=== PATIENT | female | born 1990 | race Caucasian/White ===

== ENCOUNTER 2016-08-26 06:22 | Emergency (ER) | payer OTHER ==
[2016-08-26 06:44] VITALS: TEMP 97.6; BMI 22.1
[2016-08-26] MEDS ORDERED: PSEUDOEPHEDRINE HCL 60 MG TABLET PO ONE (07:42)
[2016-08-26] MEDS ORDERED: IBUPROFEN 600 MG TABLET (FP) PO ONE ×2 (07:42→07:52)
--- NOTE | 2016-08-26 07:43 | PDOC ---
History of Present Illness - General Chief Complaint: Sore Throat Stated Complaint: SORE THROAT Time Seen by Provider: 08/26/16 07:07 History Source: Patient Exam Limitations: No Limitations - History of Present Illness Initial Comments: 08/26/16 07:43 CHIEF COMPLAINT: Throat pain HISTORY OF PRESENT ILLNESS: This is a 26 year old female with a history of asthma who presents with 3 days of nasal congestion, throat pain, and malaise. She woke up this morning with worsening throat pain/painful swallowing, prompting her to present to the ED. She denies fevers/chills, cough, difficulty breathing, or any other symptoms. V/s on arrival are unremarkable. REVIEW OF SYSTEMS: GENERAL/CONSTITUTIONAL: No fever or chills. No weakness. No weight change. HEAD, EYES, EARS, NOSE AND THROAT: See HPI. CARDIOVASCULAR: No chest pain or palpitations. RESPIRATORY: No cough, wheezing, or shortness of breath. GASTROINTESTINAL: No nausea, vomiting, diarrhea or constipation. GENITOURINARY: No dysuria, frequency, or change in urination. MUSCULOSKELETAL: No joint or muscle swelling or pain. No neck or back pain. SKIN: No rash or easy bruising. NEUROLOGIC: No headache, vertigo, loss of consciousness, or loss of sensation. ALLERGIC/IMMUNOLOGIC: No hives or skin allergy. No latex allergy. PHYSICAL EXAM: GENERAL: The patient is awake, alert, and fully oriented, in no acute distress. ENT: Tonsils 3+ and mildly erythematous, no exudates. +Cervical adenopathy. + Nasal congestion/rhinorrhea. LUNGS: Clear to auscultation bilaterally. Normal excursion. No respiratory distress or use of accessory muscles. CV: RRR, S1/S2, no MRG. Cap refill < 2 sec. ABDOMEN: Soft, non-distended, non-tender. EXTREMITIES: Normal range of motion, no edema. NEUROLOGICAL: Normal speech, normal gait. CN II-XII grossly intact. PSYCH: Normal mood, normal affect. SKIN: Warm, dry, normal turgor, no rashes or lesions noted. Past History - Past Medical History Allergies/Adverse Reactions: Allergies Allergy/AdvReac Type Severity Reaction Status Date / Time No Known Allergies Allergy Verified 08/26/16 06:44 Home Medications: Ambulatory Orders NK [No Known Home Medication] 08/26/16 - Psycho/Social/Smoking Cessation Hx Suicidal Ideation: No Smoking History: Never smoked Have you smoked in the past 12 months: No Hx Alcohol Use: No Drug/Substance Use Hx: No *Physical Exam - Vital Signs Last Vital Signs Temp Pulse Resp BP Pulse Ox 97.6 F 63 18 115/70 100 08/26/16 06:42 08/26/16 06:42 08/26/16 06:42 08/26/16 06:42 08/26/16 06:42 ED Treatment Course - ADDITIONAL ORDERS Additional order review: Laboratory Results 08/26/16 07:19 Urine HCG, Qual Negative Medical Decision Making - Medical Decision Making 08/26/16 08:09 A/P: 26 year old female with throat pain/tonsillar swelling/cervical adenopathy , no cough, and nasal congestion. -Pgu -Rapid strep/culture -Motrin/Sudafed for symptomatic relief -Will treat with Bicillin IM for suspected strep *DC/Admit/Observation/Transfer Diagnosis at time of Disposition: Strep pharyngitis - Discharge Dispostion Admit: No - Referrals Referrals: Danielle Muñoz NP [Primary Care Provider] - 3 days - Patient Instructions Printed Discharge Instructions: DI for Strep Throat Additional Instructions: -Rest and stay well-hydrated -Take ibuprofen as needed for pain and Sudafed as needed for congestion -Return here for difficulty breathing, inability to swallow, or any other concerning symptoms - Post Discharge Activity Work/School Note: Back to Work
[2016-08-26] MEDS ORDERED: PSEUDOEPHEDRINE HCL 60 MG TABLET ONE (07:52)
[2016-08-26] MEDS ORDERED: PENICILLIN G BENZATHINE 1,200,000 UNIT/2 ML PFS IM ONE (08:38)
[2016-08-26] MEDS ORDERED: DEXAMETHASONE LIQUID 0.5 MG/5 ML 240 ML BULK BOTTLE PO ONE (08:44)
[2016-08-26] MEDS ORDERED: DEXAMETHASONE SOD PHOSPHATE 10 MG/1 ML VIAL ONE (08:46)
[2016-08-26] MEDS ORDERED: PENICILLIN G BENZATHINE 2,400,000 UNIT/4 ML PFS ONE (08:47)
[2016-08-26 09:14] VITALS: BP 115/78; PULSE 62
== END 2016-08-26 09:14 | disposition home or self-care (01) ==
LOC: JER 06:22
DX: J02.0 Streptococcal pharyngitis (principal); B95.4 Other streptococcus as the cause of diseases classified elsewhere
CPT/HCPCS: 84703; 87070; 87430; 96372; 99282-25

== ENCOUNTER 2017-06-06 21:26 | Emergency (ER) | payer OTHER ==
[2017-06-06 21:34] VITALS: BP 121/79; PULSE 77; TEMP 98.8; BMI 25.4
--- NOTE | 2017-06-06 21:35 | PDOC ---
Rapid Medical Evaluation Chief Complaint: Migraine Headache Time Seen by Provider: 06/06/17 21:32 Medical Evaluation: Allergies Allergy/AdvReac Type Severity Reaction Status Date / Time No Known Allergies Allergy Verified 08/26/16 06:44 06/06/17 21:32 27yo Female patient 17 weeks presents to ED c/o persistent headache that has been ongoing x 3 weeks. Patient states she has been taking Tylenol which helps with the symptoms, but they return. She denies any other complaints at this time.
[2017-06-06 21:52] LABS: URINE APPEARANCE SLCLOUDY; URINE BILIRUBIN NEGATIVE (NEGATIVE); URINE BLOOD NEGATIVE (NEGATIVE); URINE COLOR LTYELLOW; URINE GLUCOSE (UA) NEGATIVE (NEGATIVE); URINE KETONE NEGATIVE (NEGATIVE); URINE NITRITE NEGATIVE (NEGATIVE); URINE PROTEIN NEGATIVE (NEGATIVE); URINE UROBILINOGEN NEGATIVE mg/dL (0.2-1.0)
[2017-06-06 21:55] LABS: BASO % 0.6 % (0-2.0); EOS % 0.6 % (0-4.5); HEMATOCRIT 37.5 % (32.4-45.2); HEMOGLOBIN 12.5 GM/dL (10.7-15.3); LYMPH % 21.2 % (8-40); MCH 31.2 pg (25.7-33.7); MCHC 33.4 g/dl (32.0-36.0); MEAN CELL VOLUME 93.4 fl (80-96); MEAN PLT VOLUME 12.4 fl (7.5-11.1); NEUT % 71.6 % (42.8-82.8); PLATELET COUNT 146 K/MM3 (134-434); RBC 4.02 M/mm3 (3.60-5.2); RDW 13.2 % (11.6-15.6); WHITE BLOOD COUNT 11.8 K/mm3 (4.0-10.0)
[2017-06-06 22:00] LABS: URINE LEUK ESTERASE 1+ (NEGATIVE)
--- NOTE | 2017-06-06 22:06 | PDOC ---
History of Present Illness <RohithMaria Luisa - Last Filed: 06/06/17 23:20> - General History Source: Patient Exam Limitations: No Limitations - History of Present Illness Initial Comments: 06/06/17 22:37 The patient is a 27 year old, , female with no significant past medical history who presents to the ED with complaints of headache for the past three weeks. The patient describes the headache as a constant, frontal, sometimes unilateral, headache that is sharp and stabbing. She reports sleeping and Tylenol help the pain, but it is aggravated by light. She reports taking Tylenol once a day. She has not seen her OB for this yet as her last appointment was rescheduled for next week. She denies any fever, chills, nausea , vomiting, diarrhea, cough, SOB, or urinary symptoms. <Carly Jordan - Last Filed: 06/06/17 23:44> - General Chief Complaint: Migraine Headache Stated Complaint: HEADACHE Time Seen by Provider: 06/06/17 21:32 Past History - Past Medical History Asthma: Yes COPD: No - Suicide/Smoking/Psychosocial Hx Smoking History: Never smoked Have you smoked in the past 12 months: No Hx Alcohol Use: No Drug/Substance Use Hx: No Substance Use Type: None <Maria Luisa Newberry - Last Filed: 06/06/17 23:20> <Carly Jordan - Last Filed: 06/06/17 23:44> - Past Medical History Allergies/Adverse Reactions: Allergies Allergy/AdvReac Type Severity Reaction Status Date / Time No Known Allergies Allergy Verified 08/26/16 06:44 Home Medications: Ambulatory Orders NK [No Known Home Medication] 08/26/16 Review of Systems - Review of Systems Able to Perform ROS?: Yes Comments:: 06/06/17 22:37 GENERAL/CONSTITUTIONAL: No fever or chills. No weakness. HEAD, EYES, EARS, NOSE AND THROAT: No change in vision. No ear pain or discharge. No sore throat. CARDIOVASCULAR: No chest pain or shortness of breath. RESPIRATORY: No cough, wheezing, or hemoptysis. GASTROINTESTINAL: No nausea, vomiting, diarrhea or constipation. GENITOURINARY: No dysuria, frequency, or change in urination. MUSCULOSKELETAL: No joint or muscle swelling or pain. No neck or back pain. SKIN: No rash NEUROLOGIC: Present: headache No vertigo, loss of consciousness, or change in strength/sensation. ENDOCRINE: No increased thirst. No abnormal weight change. HEMATOLOGIC/LYMPHATIC: No anemia, easy bleeding, or history of blood clots. ALLERGIC/IMMUNOLOGIC: No hives or skin allergy. All Other Systems: Reviewed and Negative <Carly Jordan - Last Filed: 06/06/17 23:44> *Physical Exam - Vital Signs Last Vital Signs Temp Pulse Resp BP Pulse Ox 98.8 F 77 16 121/79 100 06/06/17 21:31 06/06/17 21:31 06/06/17 21:31 06/06/17 21:31 06/06/17 21:31 <Maria Luisa Newberry - Last Filed: 06/06/17 23:20> - Vital Signs Last Vital Signs Temp Pulse Resp BP Pulse Ox 98.8 F 77 16 121/79 100 06/06/17 21:31 06/06/17 21:31 06/06/17 21:31 06/06/17 21:31 06/06/17 21:31 - Physical Exam Comments: 06/06/17 22:47 GENERAL: Awake, alert, and fully oriented, in no acute distress HEAD: No signs of trauma EYES: PERRLA, EOMI, sclera anicteric, conjunctiva clear ENT: Auricles normal inspection, hearing grossly normal, nares patent, oropharynx clear without exudates. Moist mucosa NECK: Normal ROM, supple, no lymphadenopathy, JVD, or masses LUNGS: Breath sounds equal, clear to auscultation bilaterally. No wheezes, and no crackles HEART: Regular rate and rhythm, normal S1 and S2, no murmurs, rubs or gallops ABDOMEN: Soft, nontender, normoactive bowel sounds. No guarding, no rebound. No masses EXTREMITIES: Normal range of motion, no edema. No clubbing or cyanosis. No cords, erythema, or tenderness NEUROLOGICAL: Cranial nerves II through XII grossly intact. Normal speech, normal gait SKIN: Warm, Dry, normal turgor, no rashes or lesions noted. <Carly Jordan - Last Filed: 06/06/17 23:44> ED Treatment Course - LABORATORY CBC & Chemistry Diagram: 06/06/17 21:40 06/06/17 21:40 - ADDITIONAL ORDERS Additional order review: Laboratory Results 06/06/17 21:35 Urine Color Ltyellow Urine Appearance Slcloudy Urine pH 6.0 Ur Specific [place] 1.014 Urine Protein Negative Urine Glucose (UA) Negative Urine Ketones Negative Urine Blood Negative Urine Nitrite Negative Urine Bilirubin Negative Urine Urobilinogen Negative Ur Leukocyte Esterase 1+ H 06/06/17 21:40 RBC 4.02 MCV 93.4 MCHC 33.4 RDW 13.2 MPV 12.4 H Neutrophils % 71.6 Lymphocytes % 21.2 Monocytes % 6.0 Eosinophils % 0.6 Basophils % 0.6 <Maria Luisa Newberry - Last Filed: 06/06/17 23:20> - LABORATORY CBC & Chemistry Diagram: 06/06/17 21:40 06/06/17 21:40 - ADDITIONAL ORDERS Additional order review: Laboratory Results 06/06/17 06/06/17 21:40 21:35 Sodium 138 Potassium 3.7 Chloride 106 Carbon Dioxide 25 Anion Gap 7 L BUN 8 Creatinine 0.5 L Creat Clearance w eGFR > 60 Random Glucose 120 H Calcium 8.6 Total Bilirubin 0.4 AST 37 ALT 58 Alkaline Phosphatase 45 Total Protein 6.9 Albumin 3.1 L Urine Color Ltyellow Urine Appearance Slcloudy Urine pH 6.0 Ur Specific [place] 1.014 Urine Protein Negative Urine Glucose (UA) Negative Urine Ketones Negative Urine Blood Negative Urine Nitrite Negative Urine Bilirubin Negative Urine Urobilinogen Negative Ur Leukocyte Esterase 1+ H Urine WBC (Auto) 4 Urine RBC (Auto) 3 Ur Epithelial Cells Moderate Urine Bacteria Rare Hyaline Casts 4 Urine Mucus Rare 06/06/17 21:40 RBC 4.02 MCV 93.4 MCHC 33.4 RDW 13.2 MPV 12.4 H Neutrophils % 71.6 Lymphocytes % 21.2 Monocytes % 6.0 Eosinophils % 0.6 Basophils % 0.6 <Carly Jordan - Last Filed: 06/06/17 23:44> Medical Decision Making - Medical Decision Making 06/06/17 23:20 Pt presents to the ED complaining of persistent daily frontal headache for the last three weeks. No signs or symptoms consistent with pre-ecclampsia, subarachnoid or subdural. Will discharge home with instructions to call her PMD for follow up on Friday. Patient is low suspicion for intracranial mass, but given the persistence of her headache, she should have MRI. <RohithMaria Luisa - Last Filed: 06/06/17 23:20> *DC/Admit/Observation/Transfer - Discharge Dispostion Admit: No <Maria Luisa Newberry - Last Filed: 06/06/17 23:20> - Attestations Scribe Attestion: 06/06/17 22:47 Documentation prepared by Carly Jordan, acting as medical detail representative for Maria Luisa Newberry MD. <Carly Jordan - Last Filed: 06/06/17 23:44> Diagnosis at time of Disposition: Headache Qualifiers: Headache type: unspecified Headache chronicity pattern: acute headache Intractability: not intractable Qualified Code(s): R51 - Headache - Discharge Dispostion Disposition: HOME Condition at time of disposition: Good - Referrals Referrals: Danielle Muñoz NP [Primary Care Provider] - - Patient Instructions Printed Discharge Instructions: DI for Headache Additional Instructions: return to the ED for severe headache, changes in your vision, headache with fever, nausea or vomiting, severe abdominal pain or vaginal bleeding. Make sure that you see your PMD on Friday--you may need an MRI of the brain as an outpatient. - Post Discharge Activity
[2017-06-06 22:10] LABS: ALBUMIN 3.1 g/dl (3.4-5.0); ANION GAP 7 (8-16); BLOOD UREA NITROGEN 8 mg/dL (7-18); CALCIUM 8.6 mg/dL (8.5-10.1); CHLORIDE 106 mmol/L (98-107); CO2 25 mmol/L (21-32); CREATININE 0.5 mg/dL (0.55-1.02); GLUCOSE,RANDOM 120 mg/dL (74-106); POTASSIUM 3.7 mmol/L (3.5-5.1); SGOT/AST 37 U/L (15-37); SGPT/ALT 58 U/L (12-78); SODIUM 138 mmol/L (136-145)
[2017-06-06 22:13] LABS: ALK PHOS 45 U/L (45-117); BILIRUBIN,TOTAL 0.4 mg/dL (0.2-1.0); TOT PROT 6.9 g/dl (6.4-8.2)
[2017-06-06 22:15] LABS: EPI CELLS MODERATE /HPF (FEW); URINE BACTERIA RARE /hpf (NONE SEEN); URINE HYALINE CAST 4 /lpf; URINE MUCUS RARE
[2017-06-06] MEDS ORDERED: ACETAMINOPHEN 500 MG TABLET (FP) PO ONE (22:37)
[2017-06-06] MEDS ORDERED: ACETAMINOPHEN 325 MG TABLET (FP) ONE (22:43)
== END 2017-06-06 23:44 | disposition home or self-care (01) ==
LOC: JER 21:26
DX: R51 Headache (principal)
CPT/HCPCS: 36415; 80053; 81003; 81015; 85025; 99281-25

== ENCOUNTER 2017-09-17 10:59 | Emergency (ER) | payer OTHER ==
[2017-09-17 11:36] VITALS: TEMP 98.5; BMI 26.9
--- NOTE | 2017-09-17 11:59 | PDOC ---
History of Present Illness - General Chief Complaint: Shortness of Breath Stated Complaint: SOB, (32 WKS ) Time Seen by Provider: 09/17/17 11:50 History Source: Patient - History of Present Illness Presenting Symptoms: Chest Pain, Short of Breath Timing/Duration: reports: intermittent Past History - Past Medical History Allergies/Adverse Reactions: Allergies Allergy/AdvReac Type Severity Reaction Status Date / Time No Known Allergies Allergy Verified 09/17/17 11:32 Home Medications: Ambulatory Orders Albuterol Sulfate Inhaler - [Ventolin HFA Inhaler -] 1 - 2 puff PO PRN PRN 07/02 Ferrous Sulfate [Feosol] 325 mg PO DAILY 07/02/17 Vit/Iron Fum/Folic AC [ Tablet] 1 each PO DAILY 07/02/17 Asthma: Yes COPD: No DVT: No Other medical history: GDM - Immunization History Immunization Up to Date: Yes - Suicide/Smoking/Psychosocial Hx Smoking History: Never smoked Have you smoked in the past 12 months: No Information on smoking cessation initiated: No Hx Alcohol Use: No Drug/Substance Use Hx: No Substance Use Type: None Review of Systems - Review of Systems Constitutional: No: Chills, Fever Respiratory: Yes: Shortness of Breath. No: Cough Cardiac (ROS): Yes: Chest Pain. No: Lightheadedness, Palpitations ABD/GI: No: Abdominal cramping : No: Dysuria *Physical Exam - Vital Signs Last Vital Signs Temp Pulse Resp BP Pulse Ox 98.5 F 95 H 16 110/67 98 09/17/17 11:32 09/17/17 18:29 09/17/17 18:29 09/17/17 18:29 09/17/17 18:29 - Physical Exam General Appearance: Yes: Appropriately Dressed. No: Apparent Distress HEENT: positive: Normal Voice Neck: positive: Supple Respiratory/Chest: positive: Lungs Clear, Normal Breath Sounds. negative: Respiratory Distress Cardiovascular: positive: Regular Rate, S1, S2 Integumentary: positive: Dry, Warm Neurologic: positive: Fully Oriented, Alert, Normal Mood/Affect ED Treatment Course - LABORATORY CBC & Chemistry Diagram: 09/17/17 12:38 09/17/17 12:38 - ADDITIONAL ORDERS Additional order review: Laboratory Results 09/17/17 09/17/17 16:00 12:38 D-Dimer 822 H Sodium 139 Potassium 4.1 Chloride 106 Carbon Dioxide 22 Anion Gap 11 BUN 7 Creatinine 0.3 L Creat Clearance w eGFR > 60 Random Glucose 78 Calcium 8.7 Total Bilirubin 0.3 D AST 26 ALT 16 Alkaline Phosphatase 123 H Creatine Kinase 46 Troponin I < 0.02 B-Natriuretic Peptide 9.62 Total Protein 6.7 Albumin 2.9 L 09/17/17 12:38 RBC 4.10 MCV 92.8 MCHC 34.3 RDW 13.6 MPV 11.7 H Neutrophils % 67.0 Lymphocytes % 25.8 D Monocytes % 6.3 Eosinophils % 0.6 Basophils % 0.3 - RADIOLOGY Radiology Studies Ordered: Category Date Time Status DUPLEX VASCUL US-2LEGS [US] Stat Ultrasound 09/17/17 15:55 Completed Medical Decision Making - Medical Decision Making 09/17/17 11:57 27-year-old female, , approximately 32 weeks by dates C/B gestational diabetes and thrombocytopenia as per patient, here with shortness of breath 1 week, worse when supine and has to sit up to sleep. Also complaining of possible chest pain. No hemoptysis, palpitations, dizziness, leg pain or swelling. Denies abd pain, vag bleed or dysuria See exam SOB in 3rd trimester Tachy to 100 w/ unremarkable exam otherwise Possibly dyspnea of vs PE vs cardiac (i.e cardiomyopathy, dissection, ischemia), less likely infxn -ekg -labs -CT -transfer to L&D if w/u neg in ER 09/17/17 14:46 09/17/17 15:25 EKG with sinus tach to 102 with T-wave inversions in 11 and aVF as discussed with Dr. Bloom. Labs including troponin negative. After signing consent for CT , pt now refusing procedure. Benefit/risks was explained to patient by myself, Dr Bloom and radiologist who informed patient that there is some exposure of radiation to the fetus and that iodinated contrast materials does cross the placenta. Pt continues to refuse CT despite being aware that we are r/o PE which can be life threatening if she, in fact, has it. Pt verbalized understanding but still declines test. Appears to have capacity. Aware she can return to ED at any point to get imaging. AMA form signed and witnessed by myself and family. Will now transfer to L&D for monitoring 09/17/17 15:53 After further discussion with patient and ED attending, a decision was made to perform bilateral lower extremity dopplers and get a d-dimer which pt agrees to 09/17/17 18:09 Dimer in the 800s and possibly be due to state. Bilateral lower extremity dopplers negative for DVT. Explained to patient that we still cannot definitively rule out PE without a CT of her chest. Patient verbalized understanding but refuses scan. Rpt vitals improved without intervention. Will now transport upstairs to L&D *DC/Admit/Observation/Transfer Diagnosis at time of Disposition: SOB (shortness of breath) - Discharge Dispostion Disposition: AGAINST MEDICAL ADVICE Condition at time of disposition: Stable - Referrals Referrals: Sindhu Tinoco MD [Primary Care Provider] - - Patient Instructions Additional Instructions: You refused CAT scan of her lungs to rule out blood clot today. Please know you can return to ER at any point to continue evaluation. You were sent up to labor and delivery to have monitoring. Continue follow-up with your [employer]MBRE[employer] FINISHER - Post Discharge Activity
--- NOTE | 2017-09-17 12:13 | PDOC ---
*Physical Exam - Vital Signs Last Vital Signs Temp Pulse Resp BP Pulse Ox 98.5 F 100 H 20 109/60 98 09/17/17 11:32 09/17/17 11:32 09/17/17 11:32 09/17/17 11:32 09/17/17 11:32 ED Treatment Course - LABORATORY CBC & Chemistry Diagram: 09/17/17 12:38 09/17/17 12:38 Medical Decision Making - Medical Decision Making 09/17/17 12:13 MS Hoffman is a 27 yo F who presents to the ER with a complaint of shortness of breath EKG: Sinus tachycardia, rate of 102 bpm, [place] nml, intervals nml T wave inversion III, aVF Pending labs Will do CTA Pt seen by Midlevel Provider under my direct supervision Pt interviewed and examined Ancillary studies reviewed I agree with plan as outlined by Midlevel Provider 09/17/17 12:[address] scan with this patient She signed consent form 09/17/17 15:[address], discussed CT scan with commercial maintenance technician She now states she does not want CT scan Pt decision was reviewed by CHAUNCEY Adame She understands the risks of leaving against medical advice Will send to L&D Pt is leaving Against Medical Advice Note: The patient insists on leaving the emergency dept and is signing out against medical advice. The patient understands the risks and complications that may result from the refusal of medical care and admission which includes and permanent disability. The patient has the mental capacity of understanding the risks of refusing care and is capable of making an informed decision. The patient was instructed to return to the emergency department should she change her mind regarding medical care or should her condition worsen. The patient signed the Against Medical Advice form. *DC/Admit/Observation/Transfer Diagnosis at time of Disposition: SOB (shortness of breath) - Discharge Dispostion Disposition: AGAINST MEDICAL ADVICE Condition at time of disposition: Stable - Referrals Referrals: Sindhu Tinoco MD [Primary Care Provider] - (patient requesting to leave hospital against medical advice without having ultrasound, monitoring or examination by the OB. patient verbalizes understanding of significance of leaving hospital against medical advice. patient signs consent form confirming understanding of leaving hospital against medical advice. patient verbalizes understanding of importance of drinking 10--8oz glasses per day. patient will return to labor & delivery if water breaks, vaginal bleeding, regular contractions or decreased movement patient will maintain appt as scheduled for 09/30/17 9am or reschedule appt for sooner if not feeling well ) - Patient Instructions Additional Instructions: You refused CAT scan of her lungs to rule out blood clot today. Please know you can return to ER at any point to continue evaluation. You were sent up to labor and delivery to have monitoring. Continue follow-up with your [employer]NAPS[employer] SPRAYER - Post Discharge Activity
[2017-09-17 13:29] LABS: BASO % 0.3 % (0-2.0); EOS % 0.6 % (0-4.5); LYMPH % 25.8 % (8-40); MCH 31.8 pg (25.7-33.7); MCHC 34.3 g/dl (32.0-36.0); MEAN CELL VOLUME 92.8 fl (80-96); MEAN PLT VOLUME 11.7 fl (7.5-11.1); MONO % 6.3 % (3.8-10.2); PLATELET COUNT 107 K/MM3 (134-434); RDW 13.6 % (11.6-15.6); WHITE BLOOD COUNT 10.1 K/mm3 (4.0-10.0)
[2017-09-17 13:45] LABS: ALBUMIN 2.9 g/dl (3.4-5.0); ANION GAP 11 (8-16); BILIRUBIN,TOTAL 0.3 mg/dL (0.2-1.0); BLOOD UREA NITROGEN 7 mg/dL (7-18); CALCIUM 8.7 mg/dL (8.5-10.1); CHLORIDE 106 mmol/L (98-107); CO2 22 mmol/L (21-32); CREATININE 0.3 mg/dL (0.55-1.02); GLUCOSE,RANDOM 78 mg/dL (74-106); SGPT/ALT 16 U/L (12-78); SODIUM 139 mmol/L (136-145)
[2017-09-17 13:49] LABS: ALK PHOS 123 U/L (45-117); N-TERMINAL BNP 9.62 pg/ml (5-125); TOT PROT 6.7 g/dl (6.4-8.2)
[2017-09-17 14:20] LABS: POTASSIUM 4.1 mmol/L (3.5-5.1); SGOT/AST 26 U/L (15-37)
[2017-09-17 18:30] VITALS: BP 110/67; PULSE 95
--- NOTE | 2017-09-18 12:59 | EKG ---
Test Reason : Blood Pressure : / mmHG Vent. Rate : 102 BPM Atrial Rate : 102 BPM P-R Int : 128 ms QRS Dur : 080 ms QT Int : 354 ms P-R-T Axes : 052 049 011 degrees QTc Int : 461 ms SINUS TACHYCARDIA NONSPECIFIC T WAVE ABNORMALITY ABNORMAL ECG NO PREVIOUS ECGS AVAILABLE Confirmed by JANETH GUALLPA MD ([id number]) on 09/18/2017 12:59:14 PM Referred By: Confirmed By:JANETH GUALLPA MD
== END 2017-09-17 19:50 | disposition left against medical advice (07) ==
LOC: JER 10:59
DX: O26.893 Other specified pregnancy related conditions, third trimester (principal); R06.02 Shortness of breath; O24.419 Gestational diabetes mellitus in pregnancy, unspecified control; O99.113 Other diseases of the blood and blood-forming organs and certain disorders involving the immune mechanism complicating pregnancy, third trimester; D69.6 Thrombocytopenia, unspecified; Z3A.32 32 weeks gestation of pregnancy
CPT/HCPCS: 36415; 80053; 82550; 83880; 84484; 85025; 85379; 93005; 93010; 93970-TC; 99282-25

== ENCOUNTER 2017-10-22 10:38 | Inpatient (IN) | payer OTHER ==
[2017-10-22] MEDS ORDERED: AMPICILLIN - 2 GM in SODIUM CHLORIDE 100 ML IVPB ONE (11:35)
[2017-10-22] MEDS ORDERED: AMPICILLIN SODIUM 2 GM VIAL ONE (11:35)
[2017-10-22] MEDS ORDERED: ELECTROLYTE-148 SOLN 1,000 ML IV SCH ×2 (12:00→17:00)
[2017-10-22 12:19] VITALS: BMI 30.2
[2017-10-22 12:57] LABS: BASO % 0.2 % (0-2.0); EOS % 0.2 % (0-4.5); HEMATOCRIT 37.8 % (32.4-45.2); HEMOGLOBIN 12.7 GM/dL (10.7-15.3); LYMPH % 20.6 % (8-40); MCH 31.1 pg (25.7-33.7); MCHC 33.7 g/dl (32.0-36.0); MEAN CELL VOLUME 92.1 fl (80-96); MEAN PLT VOLUME 11.8 fl (7.5-11.1); MONO % 5.9 % (3.8-10.2); NEUT % 73.1 % (42.8-82.8); PLATELET COUNT 77 K/MM3 (134-434); RDW 13.9 % (11.6-15.6); WHITE BLOOD COUNT 7.7 K/mm3 (4.0-10.0)
[2017-10-22 13:14] LABS: INR 0.92 (0.82-1.09); PROTHROMBIN TIME (PATIENT) 10.4 SEC (9.7-13.0)
[2017-10-22 13:17] LABS: ACTIVATED PTT 23.3 SECONDS (26.9-34.4)
[2017-10-22 13:23] LABS: ANION GAP 9 (8-16); BLOOD UREA NITROGEN 8 mg/dL (7-18); CALCIUM 8.3 mg/dL (8.5-10.1); CHLORIDE 107 mmol/L (98-107); CO2 24 mmol/L (21-32); CREATININE 0.4 mg/dL (0.55-1.02); GLUCOSE,RANDOM 61 mg/dL (74-106); POTASSIUM 3.8 mmol/L (3.5-5.1); SODIUM 140 mmol/L (136-145)
[2017-10-22 13:54] LABS: ALBUMIN 2.6 g/dl (3.4-5.0); ANION GAP 7 (8-16); BILIRUBIN,TOTAL 0.3 mg/dL (0.2-1.0); BLOOD UREA NITROGEN 7 mg/dL (7-18); CALCIUM 8.3 mg/dL (8.5-10.1); CHLORIDE 110 mmol/L (98-107); CO2 23 mmol/L (21-32); CREATININE 0.4 mg/dL (0.55-1.02); GLUCOSE,RANDOM 60 mg/dL (74-106); POTASSIUM 3.8 mmol/L (3.5-5.1); SGOT/AST 21 U/L (15-37); SGPT/ALT 18 U/L (12-78); SODIUM 140 mmol/L (136-145); TOT PROT 5.8 g/dl (6.4-8.2)
[2017-10-22 13:55] LABS: ALK PHOS 206 U/L (45-117)
[2017-10-22] MEDS ORDERED: AMPICILLIN SODIUM 1 GM VIAL ONE ×3 (15:27→23:30)
[2017-10-22] MEDS: AMPICILLIN - 1 GM in SODIUM CHLORIDE 100 ML IVPB SCH ×3 (15:30→23:30)
[2017-10-22] MEDS ORDERED: DINOPROSTONE 10 MG VAGINAL SUPPOSITORY VG ONE (17:00)
--- NOTE | 2017-10-22 17:00 | HP ---
Past Medical History - Admission Chief Complaint: Rupture of membrane History of Present Illness: 27 yo @ 37 weeks gestation, EDC 11/12/17, with h/o gestational diabetes, admitted for spontaneous rupture of membrane at 10 am. History Source: Patient Limitations to Obtaining History: No Limitations - Past Medical History ...: 3 ...Para: 1 ...Term: 1 ...Induced : 1 ...LMP: 02/05/17 ... Weeks Gestation by Dates: 37 ...EDC by Dates: 11/12/17 ...EDC by Sono: 11/12/17 - Past Surgical History Past Surgical History: Yes: None Hx Myomectomy: No Hx Transabdominal Cerclage: No - Smoking History Smoking history: Never smoked Have you smoked in the past 12 months: No - Alcohol/Substance Use Hx Alcohol Use: No History of Substance Use: reports: None - Social History History of Recent Travel: No Home Medications - Allergies Allergies/Adverse Reactions: Allergies Allergy/AdvReac Type Severity Reaction Status Date / Time No Known Allergies Allergy Verified 10/15/17 14:56 - Home Medications Home Medications: Ambulatory Orders Vit/Iron Fum/Folic AC [ Tablet] 1 tab PO DAILY 07/02/17 Humalog 11 units SQ BID 10/22/17 Lantus 22 units SQ BID 10/22/17 Family Disease History - Family Disease History Family History: Unremarkable Review of Systems - Review of Systems Constitutional: reports: No Symptoms Eyes: reports: No Symptoms HENT: reports: No Symptoms Neck: reports: No Symptoms Cardiovascular: reports: No Symptoms Respiratory: reports: No Symptoms Gastrointestinal: reports: No Symptoms Genitourinary: reports: Other (Leakage of fluid) Breasts: reports: No Symptoms Reported Musculoskeletal: reports: No Symptoms Integumentary: reports: No Symptoms Neurological: reports: No Symptoms Endocrine: reports: No Symptoms Hematology/Lymphatic: reports: No Symptoms Psychiatric: reports: No Symptoms Pain Intensity: 3 Physical Exam - Maternity Vital Signs: Vital Signs Temperature 98.0 F 10/22/17 16:00 Pulse Rate 70 10/22/17 16:00 Respiratory Rate 20 10/22/17 16:00 Blood Pressure 114/62 10/22/17 16:00 O2 Sat by Pulse Oximetry (%) Constitutional: Yes: Well Nourished Eyes: Yes: Conjunctiva Clear HENT: Yes: Atraumatic Neck: Yes: Supple Cardiovascular: Yes: Regular Rate and Rhythm Lungs: Clear to auscultation - Abdominal Exam/OB Number of Fetuses: Single Presentation: Vertex Contractions: Yes Regularity: Irregular Intensity: Mild - Vaginal Exam/OB Vaginal Bleediing: No Dilatation (cm): 1 Effacement (%): 60 Amniotic Membrane Status: Leaking Presentation: Vertex/Position Station: -3 - Physical Exam Musculoskeletal: Yes: WNL Extremities: Yes: WNL Integumentary: Yes: WNL ...Motor Strength: WNL Psychiatric: Yes: Alert, Oriented - Labs Lab Results: CBC, BMP 10/22/17 12:23 10/22/17 13:23 Problem List - Problems (1) Spontaneous rupture of membranes Code(s): [id number] - Assessment/Plan IUP @ 37 weeks Gestational diabetes Spontaneous rupture of membrane Admit to L&D Group B Strep prophylaxis Cervidil induction Re-evaluate in 12 hours or before if indicated.
[2017-10-22] MEDS ORDERED: PROMETHAZINE HCL 25 MG/1 ML VIAL IVPUSH ONE (23:00)
[2017-10-22] MEDS ORDERED: BUTORPHANOL TARTRATE 1 MG/ML VIAL IVPUSH ONE (23:00)
[2017-10-22] MEDS ORDERED: BUTORPHANOL TARTRATE 1 MG/ML VIAL ONE ×2 (23:00)
[2017-10-22] MEDS ORDERED: INSULIN (LEVEMIR) 100 UNITS/ML UNITS SQ ONE (23:00)
[2017-10-22] MEDS ORDERED: PROMETHAZINE HCL 25 MG/1 ML VIAL ONE (23:00)
--- NOTE | 2017-10-22 23:49 | PN ---
Progress Note (short form) - Note Progress Note: Patient seen and evaluated, doing well. She's status post Stadol. FHR : Reactive [place] : + regular contractions VE : /-2 Cervidil removed A/P : SROM Status post Cervidil Pitocin augmentation in 30 mins Problem List - Problems (1) Spontaneous rupture of membranes Code(s): ATS8488 -
[2017-10-23] MEDS ORDERED: OXYTOCIN 30 UNITS in 0.9% NS 30 UNIT/500 ML INFUS.BAG IVPB ONE ×2 (00:06→00:08)
[2017-10-23] MEDS ORDERED: OXYTOCIN 20 UNITS in 0.9% NS 20 UNIT/1,000 ML INFUS.BAG IV ONE (00:42)
[2017-10-23] MEDS ORDERED: LIDOCAINE HCL 1% PRESERVATIVE FREE - 30ML VIAL ONE (00:42)
[2017-10-23] MEDS ORDERED: OXYTOCIN 30 UNITS in 0.9% NS 30 UNIT/500 ML INFUS.BAG IVPB SCH (00:45)
[2017-10-23] MEDS ORDERED: BISACODYL 10 MG SUPP.RECT RC PRN (03:02)
[2017-10-23] MEDS ORDERED: METHYLERGONOVINE MALEATE 0.2 MG/1 ML AMP IM PRN (03:02)
[2017-10-23] MEDS ORDERED: BENZOCAINE 20% 57 GM BOTTLE TP PRN (03:02)
[2017-10-23] MEDS ORDERED: WITCH HAZEL 50% (TUCKS) 40 PAD/JAR PAD TP PRN (03:02)
[2017-10-23] MEDS ORDERED: BENZOCAINE 28 GM HEMORRHOIDAL OINTMENT TP PRN (03:02)
--- NOTE | 2017-10-23 03:05 | PN ---
Delivery - Delivery Vaginal Delivery: Spontaneous Type of Anesthesia: Local Episiotomy/Laceration: None EBL (cc): 300 Delivery, Single - Feeding Plan Initial Plan: Elected not to breastfeed exclusively throughout hospitalization Remarks - Remarks Remarks: Normal spontaneous vaginal delivery of a live over intact perineum. Nose / Oropharynx suctioned @ perineum. Placenta expelled spontaneously intact.
[2017-10-23] MEDS ORDERED: OXYTOCIN 20 UNITS in 0.9% NS 20 UNIT/1,000 ML INFUS.BAG IV SCH (03:15)
[2017-10-23] MEDS: AMPICILLIN - 1 GM in SODIUM CHLORIDE 100 ML IVPB SCH (05:37)
[2017-10-23] MEDS: ACETAMINOPHEN 325 MG TABLET (FP) PO PRN ×3 (05:58→20:34)
[2017-10-23] MEDS: IBUPROFEN 600 MG TABLET (FP) PO PRN ×3 (06:00→20:35)
[2017-10-23] MEDS: FERROUS SO4 325 MG TABLET (FP) PO SCH ×3 (08:35→18:03)
[2017-10-23] MEDS: PRENATAL VITAMINS W/ FOLIC ACID TABLET (FP) PO SCH (10:11)
--- NOTE | 2017-10-24 07:03 | PN ---
Progress Note (short form) - Note Progress Note: ppd 1 s/p , no c/o , voids ok CBC, BMP 10/22/17 12:23 10/22/17 13:23 Last Vital Signs Temp Pulse Resp BP Pulse Ox 97.6 F 83 18 112/64 10/24/17 02:00 10/24/17 02:00 10/24/17 02:00 10/24/17 02:00 abdomen soft, no cva , uterus firm , non tender lochia mild no calf tenderness plan ambulate cbc
[2017-10-24 07:53] LABS: BASO % 0.4 % (0-2.0); EOS % 0.6 % (0-4.5); HEMATOCRIT 37.3 % (32.4-45.2); HEMOGLOBIN 12.5 GM/dL (10.7-15.3); MCH 31.4 pg (25.7-33.7); MCHC 33.3 g/dl (32.0-36.0); MEAN CELL VOLUME 94.1 fl (80-96); MEAN PLT VOLUME 12.5 fl (7.5-11.1); PLATELET COUNT 81 K/MM3 (134-434); RBC 3.97 M/mm3 (3.60-5.2); RDW 14.3 % (11.6-15.6); WHITE BLOOD COUNT 13.4 K/mm3 (4.0-10.0)
[2017-10-24] MEDS: FERROUS SO4 325 MG TABLET (FP) PO SCH ×3 (08:02→17:10)
[2017-10-24] MEDS: IBUPROFEN 600 MG TABLET (FP) PO PRN ×2 (08:39→20:34)
[2017-10-24] MEDS: ACETAMINOPHEN 325 MG TABLET (FP) PO PRN ×2 (08:40→20:33)
[2017-10-24] MEDS: PRENATAL VITAMINS W/ FOLIC ACID TABLET (FP) PO SCH (09:33)
[2017-10-24] MEDS ORDERED: DIPHTH,PERTUSS(ACELL),TET 0.5 ML DISP.SYRIN IM ONE (12:00)
[2017-10-24] MEDS ORDERED: SENNOSIDES/DOCUSATE COMBO (SENNA PLUS) TABLET (UD) PO PRN (22:00)
[2017-10-25] MEDS: FERROUS SO4 325 MG TABLET (FP) PO SCH ×3 (08:00→17:06)
--- NOTE | 2017-10-25 08:09 | DS ---
Physical Exam-SHEET FED PRINTER Vital Signs: Vital Signs Temperature 98.7 F 10/24/17 22:00 Pulse Rate 71 10/24/17 22:00 Respiratory Rate 18 10/24/17 22:00 Blood Pressure 123/73 10/24/17 22:00 O2 Sat by Pulse Oximetry (%) Constitutional: Yes: Well Nourished Eyes: Yes: Conjunctiva Clear HENT: Yes: Atraumatic Neck: Yes: Supple Cardiovascular: Yes: Regular Rate and Rhythm Respiratory: Yes: Regular Gastrointestinal: Yes: Normal Bowel Sounds External Genitalia: Yes: Normal Vaginal Exam: Yes: Normal Cervix: Yes: Normal Uterus: Yes: Firm ....Post : Yes: Uterus firm, Moderate lochia serosa Breast(s): Yes: WNL Neurological: Yes: Alert, Oriented ...Motor Strength: WNL Psychiatric: Yes: Alert, Oriented Labs: CBC, BMP 10/24/17 07:00 10/22/17 13:23 Delivery - Delivery Vaginal Delivery: Spontaneous Type of Anesthesia: None Episiotomy/Laceration: None EBL (cc): 300 Delivery, Single - Stages of Labor Date 1st Stage Initiatied: 10/22/17 Time 1st Stage Initiated: 11:30 Date 2nd Stage Initiated: 10/23/17 Time 2nd Stage Initiated: 02:48 Date of Delivery: 10/23/17 Time of Delivery: 02:53 Time Placenta Delivered: 02:58 - Condition of Infant Charge Master Analyst/User Experience Lead Present: No Infant Gender: Male Weight: 7 lb 8 oz Position: Left, OA Total Hours ROM (Hrs/Mins): 16Hrs/53Mins - 1 Minute Total Score: 8 5 Minutes Total Score: 9 - [place] Feeding Plan Initial Plan: Elected not to breastfeed exclusively throughout hospitalization Discharge Summary Reason For Visit: LABOR Current Active Problems Spontaneous rupture of membranes (Acute) Status post normal vaginal delivery (Acute) Procedures: Principal: Normal spontaneous vaginal delivery Hospital Course: Routine care Condition: Good - Instructions Diet, Activity, Other Instructions: Regular diet No douching, no sexual intercourse x 6 weeks F/u in clinic in 6 weeks Disposition: HOME - Home Medications Comprehensive Discharge Medication List: Ambulatory Orders Vit/Iron Fum/Folic AC [ Tablet] 1 tab PO DAILY 07/02/17 Humalog 11 units SQ BID 10/22/17 Lantus 22 units SQ BID 10/22/17
[2017-10-25] MEDS: PRENATAL VITAMINS W/ FOLIC ACID TABLET (FP) PO SCH (09:16)
[2017-10-25] MEDS: IBUPROFEN 600 MG TABLET (FP) PO PRN (09:16)
[2017-10-25] MEDS: ACETAMINOPHEN 325 MG TABLET (FP) PO PRN (09:16)
[2017-10-25 13:17] VITALS: BP 128/66; PULSE 94; TEMP 98.1
== END 2017-10-25 18:50 | disposition home or self-care (01) | DRG 560 ==
LOC: JLDR 10:38 → J3W 10-23 05:19
PROVIDERS: ADMIT Obstetrics & Gynecology; ATTEND Obstetrics & Gynecology
PROC: 10E0XZZ Delivery of Products of Conception, External Approach (ICD-10-PCS; principal; 2017-10-23)
DX: O24.429 Gestational diabetes mellitus in childbirth, unspecified control (principal); Z3A.37 37 weeks gestation of pregnancy; Z37.0 Single live birth
CPT/HCPCS: 36415; 59409; 80048; 80053; 82962; 85025; 85610; 85730; 86593; 86850; 86900; 86901; 90715

== ENCOUNTER 2018-03-14 11:45 | Emergency (ER) | payer OTHER ==
[2018-03-14 12:00] VITALS: BP 118/76; PULSE 52; TEMP 98.1; BMI 25.6
[2018-03-14] MEDS ORDERED: IBUPROFEN 400 MG TABLET (FP) PO ONE ×2 (12:18→12:21)
--- NOTE | 2018-03-14 12:23 | PDOC ---
History of Present Illness - General Chief Complaint: Ear Problem Stated Complaint: EAR PROBLEM Time Seen by Provider: 03/14/18 11:59 History Source: Patient - History of Present Illness Timing/Duration: reports: yesterday Associated Symptoms: reports: earache Past History - Past Medical History Allergies/Adverse Reactions: Allergies Allergy/AdvReac Type Severity Reaction Status Date / Time No Known Allergies Allergy Verified 03/14/18 11:57 Home Medications: Ambulatory Orders Amoxicillin - [Amoxicillin 875mg Tablet -] 875 mg PO BID #14 tab 03/14/18 Ciprofloxacin HCl/Dexameth [Ciprodex Otic Suspension] 4 drop AD BID #1 bottle Asthma: Yes Cancer: No Cardiac Disorders: No COPD: No DVT: No Diabetes: Yes HTN: No Seizures: No Thyroid Disease: No - Immunization History Immunization Up to Date: Yes - Suicide/Smoking/Psychosocial Hx Smoking History: Never smoked Have you smoked in the past 12 months: No Hx Alcohol Use: No Drug/Substance Use Hx: No Substance Use Type: None Hx Substance Use Treatment: No Review of Systems - Review of Systems Constitutional: No: Fever HEENTM: Yes: Ear Pain. No: Ear Discharge, Throat Pain Respiratory: No: Cough *Physical Exam - Vital Signs Last Vital Signs Temp Pulse Resp BP Pulse Ox 98.1 F 52 L 14 118/76 99 03/14/18 11:58 03/14/18 11:58 03/14/18 11:58 03/14/18 11:58 03/14/18 11:58 - Physical Exam General Appearance: Yes: Appropriately Dressed, Mild Distress HEENT: positive: Normal Voice, Other (erythema w/ minimal swelling and ttp to R ear canal, TM visualized w/ overlying exudates, +R posterior auricular lymphadenopathy, L ear wnl) Neck: positive: Supple Respiratory/Chest: negative: Respiratory Distress Integumentary: positive: Dry, Warm Neurologic: positive: Fully Oriented, Alert, Normal Mood/Affect Medical Decision Making - Medical Decision Making 03/14/18 12:22 28 yo F, no sig hx, here w/ severe R ear pain since yesterday. No otorrhea, HL, sore throat, cough, f/c. No recent sick contacts or trauma See exam OME, possibly externa as well No e/o mastoiditis -dose of motrin in ED -dc w/ amox and ciprodex *DC/Admit/Observation/Transfer Diagnosis at time of Disposition: Otitis media Qualifiers: Otitis media type: unspecified Chronicity: acute Qualified Code(s): H66.90 - Otitis media, unspecified, unspecified ear - Discharge Dispostion Disposition: HOME Condition at time of disposition: Good - Prescriptions Prescriptions: Amoxicillin - [Amoxicillin 875mg Tablet -] 875 mg PO BID #14 tab Ciprofloxacin HCl/Dexameth [Ciprodex Otic Suspension] 4 drop AD BID #1 bottle - Referrals Referrals: Sindhu Tinoco MD [Primary Care Provider] - - Patient Instructions Printed Discharge Instructions: Middle Ear Infection, Otitis Externa Additional Instructions: You were treated for both a middle ear and possible external ear infection. Take medication and use drops as directed, you can take 800 mg of Motrin every 6 hours as needed for pain. Return as needed - Post Discharge Activity
== END 2018-03-14 12:23 | disposition home or self-care (01) ==
LOC: JERFT 11:45
DX: H66.91 Otitis media, unspecified, right ear (principal); Z87.09 Personal history of other diseases of the respiratory system
CPT/HCPCS: 99281-25

== ENCOUNTER 2018-09-07 10:28 | Day surgery (SDC) | payer OTHER ==
[2018-09-04 08:59] VITALS: BMI 25.4
--- NOTE | 2018-09-07 10:31 | HP ---
Admitting History and Physical - Admission Chief Complaint: Desires permanent sterilization History of Present Illness: 28yo here for permanent sterilization x 2; no desire for future childbearing. 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: Alzheimer's, CVA, Dementia, Migraine, Multiple Sclerosis, Peripheral Neuropathy, Parkinson's, Seizure, Syncope, TIA, Vertigo, Other Cardiovascular: No: AFIB, Aneurysm, Aortic Insufficiency, Aortic Stenosis, CAD, CHF, Deep Vein Thrombosis, HTN, Hyperlipdemia, MT, Mitral Insufficiency, Mitral Stenosis, Murmur, Pulmonary Hypertension, Other Pulmonary: No: Asthma, Bronchitis, Cancer, COPD, O2 Dependent, Pneumonia, Previously Intubated, Pulmonary Embolus, Pulmonary Fibrosis, Sleep Apnea, Other Gastrointestinal: No: Ascites, Cancer, Constipation, Crohn's Disease, Diverticulitis, Diverticulosis, Esophageal Varices, Gastritis, GERD, GI Bleed, Hemorrhoids, Hiatal Hernia, Inflamatory Bowel Disease, Irritable Bowel Disease, Pancreatitis, Peptic Ulcer Disease, Ulcerative Colitis, Other Hepatobiliary: No: Cirrhosis, Cholelithiasis, Cholecystitis, Choledocholithiasis , Hepatitis A, Hepatitis B, Hepatitis C, Other Renal/: No: Renal Failure, Renal Inusuff, BPH, Cancer, Hematuria, Hemodialysis , Neurogenic Bladder, Renal Calculi, UTI, Other ...LMP: 08/27/18 ...: No ...: 2 ...Para: 2 - Past Surgical History Past Surgical History: Yes: None - Smoking History Smoking history: Never smoked Have you smoked in the past 12 months: No - Alcohol/Substance Use Hx Alcohol Use: Yes (socially) History of Substance Use: reports: None - Social History Usual Living Arrangement: Yes: With Spouse History of Recent Travel: No Home Medications - Allergies Allergies/Adverse Reactions: Allergies Allergy/AdvReac Type Severity Reaction Status Date / Time No Known Allergies Allergy Verified 09/04/18 09:01 - Home Medications Home Medications: Ambulatory Orders NK [No Known Home Medication] 09/04/18 Physical Examination Constitutional: Yes: Well Nourished, No Distress, Calm Eyes: Yes: WNL, Conjunctiva Clear, EOM Intact HENT: Yes: WNL, Atraumatic, Normocephalic Neck: Yes: WNL, Supple, Trachea Midline Cardiovascular: Yes: WNL, Regular Rate and Rhythm Respiratory: Yes: WNL, Regular, CTA Bilaterally Gastrointestinal: Yes: WNL, Normal Bowel Sounds Musculoskeletal: Yes: WNL Extremities: Yes: WNL Edema: No Integumentary: Yes: WNL Neurological: Yes: WNL, Alert, Oriented ...Motor Strength: WNL Psychiatric: Yes: WNL Problem List - Problems (1) Sterilization Code(s): Z30.2 - ENCOUNTER FOR STERILIZATION Assessment/Plan 28yo here for permanent sterilization by LSC bilateral salpingectomy NPO, IVFs No antibiotics indicated SCDs Alternatives (including but not limited to LARCs) and risks to procedure discussed with patient (including GETA, bleeding, infection, injury to bladder/ bowel/ureters/vessels/nerves). All questions answered. Consent signed. Warner Whittaker MD
[2018-09-07] MEDS ORDERED: fentaNYL CITRATE 250 MCG/5 ML VIAL ONE (12:35)
[2018-09-07] MEDS ORDERED: ROCURONIUM BROMIDE 50 MG/5 ML VIAL ONE (12:36)
[2018-09-07] MEDS ORDERED: SUCCINYLCHOLINE CHLORIDE 200 MG/10 ML VIAL ONE (12:36)
[2018-09-07] MEDS ORDERED: PROPOFOL 20 ML ONE ×2 (12:36)
[2018-09-07] MEDS ORDERED: MIDAZOLAM HCL 2 MG/2 ML SINGLE DOSE VIAL ONE (12:36)
[2018-09-07] MEDS ORDERED: LIDOCAINE HCL 1%, 10 MG/ML (20ML VIAL) INF ONE ×2 (13:19)
[2018-09-07] MEDS ORDERED: ONDANSETRON 4 MG/2 ML VIAL IVPUSH PRN (13:21)
[2018-09-07] MEDS ORDERED: LACTATED RINGERS SOLUTION 1,000 ML IV SCH (13:30)
--- NOTE | 2018-09-07 13:52 | OP ---
Operative Note - Note: Operative Date: 09/07/18 Pre-Operative Diagnosis: Desires permanent sterilization, Removal of IUD Operation: Laparoscopic Bilateral Salpingectomy, Removal of Paragard IUD Findings: Normal uterus, normal ovaries bilaterally, normal tubes bilaterally with small paratubal cyst. Surgeon: Susie Whittaker Public Address Systems Mechanic: Gale Landin Anesthesia: Spinal Estimated Blood Loss (mls): 25 Drains, Volume Out (mls): 100 (clear urine) Operative Report Dictated: Yes
--- NOTE | 2018-09-07 14:45 | SURG ---
Surgery Director Athletic Note Director Athletic: Gale Landin PA-C Date of Service: 09/07/18 Diagnosis: Desires permanent sterilization, Removal of IUD Procedure: Laparoscopic Bilateral Salpingectomy, Removal of Paragard IUD I was present for the entirety of the operative procedure. For further detail, please refer to operative report. Visit type - Case Type Case Type: Scheduled - Emergency Emergency Visit: No - New patient This patient is new to me today: Yes Date on this admission: 09/07/18
[2018-09-07] MEDS ORDERED: ACETAMINOPHEN 325 MG TABLET (FP) PO PRN (15:32)
[2018-09-07] MEDS ORDERED: ACETAMINOPHEN 325 MG TABLET (FP) PO ONE (15:35)
[2018-09-07 16:20] VITALS: BP 109/60; PULSE 82; TEMP 97.5
--- NOTE | 2018-09-07 22:43 | OP ---
DATE OF OPERATION: 09/07/2018 PREOPERATIVE DIAGNOSIS: Desires permanent sterilization. POSTOPERATIVE DIAGNOSIS: Desires permanent sterilization. PROCEDURE: Laparoscopic bilateral salpingectomy, removal of intrauterine device. SURGEON: Fernandez Gtz MD CONE SEWER: CHAUNCEY Kwon ANESTHESIA: General. INTRAVENOUS FLUIDS: Per anesthesia record. ESTIMATED BLOOD LOSS: 25. URINE OUTPUT: Clear urine 100 mL at the end of the procedure. FINDINGS: Normal uterus, normal ovaries bilaterally, normal tubes bilaterally, bilateral paratubal cysts. COMPLICATIONS: None. CONDITION: Stable to Recovery. NATURE OF THE PROCEDURE: After the appropriate consents were signed, patient was taken to the operating room. Anesthesia was administered. She was placed in dorsal lithotomy position. Sterile field was prepped and draped in normal sterile fashion. A Bowman catheter was inserted. A speculum was inserted into the vagina with good visualization of the cervix with the IUD strings present. Using a ring forcep, the IUD strings were grasped, and with gentle traction, the IUD removed without difficulty in its entirety. Speculum then removed. Attention then was paid to the abdomen and the laparoscopic portion of the procedure. Next, 1% lidocaine was injected into the umbilicus. Using an 11-blade scalpel, a small incision was made intraumbilically to accommodate a 5-mm scope which was introduced under direct visualization. The abdomen was insufflated with gas. Patient was placed in Trendelenburg position. A left lower quadrant and right lower quadrant 5-mm port were placed under direct visualization without difficulty. The patient's left fallopian tube was grasped, carried through to the fimbriated edges, and noted to be normal aside from a small paratubal cyst. Using the LigaSure device, the fallopian tube was transected along the mesosalpinx to its insertion point at the uterus. The fallopian tube was then removed through the right lower quadrant port. Attention was then paid to the bite sites which were noted to be hemostatic. The patient's right fallopian tube was then grasped, carried through to its fimbriated edges, was also noted to be normal aside from a paratubal cyst which on the right side was noted to be larger than the left side paratubal cyst. Using the LigaSure device, the fallopian tube was transected along the mesosalpinx and then again at its insertion site to the uterus. The fallopian tube was then removed via the patient's left lower quadrant port. The bite sites were noted to be hemostatic. The right lower quadrant and left lower quadrant ports were then removed under visualization. The umbilical port was removed last. The abdomen was deflated of gas. The incision sites were closed with 4-0 Biosyn. Bowman catheter was removed. All sponge, lap, and needle counts were correct x3. The patient did not receive any antibiotics. FERNANDEZ GTZ MD [id number]
--- NOTE | 2018-09-10 15:34 | PATH ---
Surgical Pathology Report Patient Name: RYLIE AHMADI [facility]. Rec. #: [id number] /Age/Gender: 1990 (Age: 28) / F Account: [id number] Location: [facility] SURGICAL Taken: 09/07/2018 Received: 09/08/2018 Reported: 09/10/2018 Physicians: Susie Whittaker Specimen(s) Received A: IUD B: LEFT FALLOPIAN TUBE AND CYST C: RIGHT FALLOPIAN TUBE Clinical History Desired permanent sterilization Final Diagnosis A. IUD, REMOVAL: IUD, DESCRIBED (GROSS EXAMINATION ONLY). B. FALLOPIAN TUBE AND CYST, LEFT, TUBAL LIGATION AND CYSTECTOMY: COMPLETE CROSS SECTION OF FALLOPIAN TUBE. PARATUBAL CYST. C. FALLOPIAN TUBE, RIGHT, TUBAL LIGATION: COMPLETE CROSS SECTION OF FALLOPIAN TUBE. Electronically Signed Gale Lane M.D. Gross Description A. Received fresh labeled "IUD," is a 3.5 cm in length T-shaped device with attached string, consistent with an IUD. No soft tissue is present. No sections are submitted, gross only. B. Received in formalin labeled "left fallopian tube and cyst," are 2 portions of fallopian tube averaging 2.0 cm in length. One of the portions displays attached fimbria. The outer surfaces are maloney-addison and smooth. Sectioning reveals an unremarkable fallopian tube lumen. Separately received within the same container is a 1.5 x 1.0 x 0.2 cm aggregate of maloney-addison soft tissue fragments, possibly consistent with a disrupted cyst. Financial Assistance Advisor sections are submitted in 3 cassettes as follows: 1-fimbria; 2-cross sections of fallopian tube; 3-cyst. C. Received in formalin labeled "right fallopian tube," are 3 portions of fallopian tube ranging from 1.0-3.0 cm in length. The shortest portion displays attached fimbria. The outer surfaces are maloney-addison with focal adhesions. Sectioning reveals an unremarkable fallopian tube lumen. Financial Assistance Advisor sections are submitted in 2 cassettes as follows: 1-fimbria; 2-cross sections of fallopian tube. DL/09/08/2018 saudi09/08/2018
== END 2018-09-07 16:30 | disposition home or self-care (01) ==
LOC: JASU-SURG 10:28
PROVIDERS: ATTEND Obstetrics & Gynecology
PROC: 0U574ZZ Destruction of Bilateral Fallopian Tubes, Percutaneous Endoscopic Approach (ICD-10-PCS; principal; 2018-09-07 12:00)
DX: Z30.2 Encounter for sterilization (principal); N83.8 Other noninflammatory disorders of ovary, fallopian tube and broad ligament
CPT/HCPCS: 84703; 88300-TC; 88302-TC; 88304-TC; 94760